=== PATIENT | female | born 1975 | race Caucasian/White ===

== ENCOUNTER 2019-06-05 01:57 | Emergency (ER) | payer OTHER ==
[~2019-06-05] VITALS: Ht 167.6 cm; Wt 145.1 kg
--- OUTSIDE RECORDS SUMMARY | 2019-06-05 02:00 | XMS REPORT ---
Author Author [facility] [place] Address Unknown Phone Unavailable Care Team Providers Care Special Events Manager Name Role Phone Unavailable Unavailable Payers Payer Name Policy Type Policy Number Effective Date Expiration Date Problems This patient has no known problems. Allergies, Adverse Reactions, Alerts Allergy Name Allergy Type Status Severity Reaction(s) Onset Date Inactive Date Treating Clinician Comments methocarbamol DA Active MT 2019-01-25 00:00:00 duloxetine DA Active MT 2019-01-25 00:00:00 No Known Contrast Allergies DA Active U 2001-07-25 00:00:00 No Known Drug Allergies DA Active U 2001-07-25 00:00:00 No Known Food Allergies DA Active U 2001-07-25 00:00:00 TAPE DA Active U 2001-07-25 00:00:00 Medications This patient has no known medications. Results Test Description Test Time Test Comments Text Results Atomic Results Result Comments SURGICAL SPECIMENS 2019-01-31 18:03:00 RUN DATE: 01/31/19 [facility] *LIVE* PAGE 1 RUN TIME: 1805 Specimen Inquiry RUN USER: INTERFACE PATIENT: ROBERTA SILVEIRA LOC: [facility] #: [id number] AGE/SX: 43/F ROOM: RE01/29/19[facility] DR: Mary Zelaya MD : 73 BED: DIS: STATUS: [facility] [place] TLOC: SPEC #: [id number] RECD: 01/30/19 STATUS: NAOMI GLORIA #: [id number] ROMEO: 01/30/19 [facility] DR: Mary Zelaya MD ENTERED: 01/31/19 SP TYPE: SURG SPEC OT DR: ORDERED: LEVEL 4 CODES: [id number] - ENDOCERVIX PROCEDURES: LEVEL 4 (Incomplete) TISSUES: 1. ENDOCERVIX - Endocervix, endometrium, curettings FINAL DIAGNOSIS Endocervix, e ndometrium, curettings: Endometrium showing disordered proliferative endometrium; small fragments of endocervical tissue without evidence of dysplasia or carcinoma. GROSS AND MICROSCOPIC GROSS EXAMINATION: Received in formalin and labeled endocervix/endometrial curettings are segments of pink-zambrano tissue and hemorrhagic coagulum that measure together up to 3.5 cm. Entirely submitted. MICROSCOPIC EXAMINATION: The endocervical and endometrial curettings show mucoid materia l and primarily endometrial glands and stroma. The glands show a disordered offered of endometrium. Small fragments of endocervical tissue are present without evidence of dysplasia or carcinoma. POST-OP DIAGNOSIS Menorrhagia PRE-OP DIAGNOSIS Menorrhagia REVIEWED BY: Signed SIGNATURE ON FILE Kady Spence MD 01/31/19 1803 END OF REPORT BASIC METABOLIC PANEL 2019-01-29 08:45:00 SODIUM (test code=NA) 139 mEq/L 134-147 POTASSIUM (test code=K) 3.0 mEq/L 3.4-5.0 CHLORIDE (test code=CL) 103 mEq/L 100-108 CARBON DIOXIDE (test code=CO2) 31 mEq/L 21-33 ANION GAP (test code=GAP) 8 0-20 GLUCOSE (test code=GLU) 94 mg/dL 70-110 BLOOD UREA NITROGEN (test code=BUN) 16 mg/dL 7-18 GLOMERULAR FILTRATION RATE (test code=GFR) 108.6 95-105 Units of measure=ml/min/1.73 m2 CREATININE (test code=CREAT) 0.6 mg/dL 0.6-1.3 CALCIUM (test code=CA) 8.8 mg/dL 8.0-10.5 BASIC METABOLIC [id number] 08:41:00* Test Item Value Reference Range Comments SODIUM (test code=NA) 138 mEq/L 134-147 POTASSIUM (test code=K) 3.1 mEq/L 3.4-5.0 CHLORIDE (test code=CL) 103 mEq/L 100-108 CARBON DIOXIDE (test code=CO2) 29 mEq/L 21-33 ANION GAP (test code=GAP) 9 0-20 GLUCOSE (test code=GLU) 100 mg/dL 70-110 BLOOD UREA NITROGEN (test code=BUN) 16 mg/dL 7-18 GLOMERULAR FILTRATION RATE (test code=GFR) 90.9 95-105 Units of measure=ml/min/1.73 m2 CREATININE (test code=CREAT) 0.7 mg/dL 0.6-1.3 CALCIUM (test code=CA) 9.2 mg/dL 8.0-10.5 PROTHROMBIN [id number] 08:38:00* Test Item Value Reference Range Comments PROTHROMBIN TIME PATIENT (test code=PTP) 12.0 SECONDS 9.3-12.9 INTERNATIONAL NORMAL RATIO (test code=INR) 1.1 0.8-1.2 TARGET INR BY INDICATION Indication INR1. Prophylaxis of venous thrombosis 2.0 - 3.0 (orthopedic surgery), Prophylaxis of venous thrombosis (other than high-risk surgery), Treatment of Deep Vein Thrombosis/Pulmonary Embolism, Prevention of systemic embolism - Tissue heart valves, Acute Myocardial Infarction (to prevent systemic embolism), Valvular heart disease, Atrial Fibrillation, Bileaflet mechanical valve in aortic position.2. Mechanical prosthetic valves (high risk), 2.5 - 3.5 Presence of Lupus Anticoagulant or Antiphospholipid Antibodies, Prevention of systemic embolism - Acute Myocardial Infarction (to prevent recurrent infarct). THROMBOPLASTIN TIME [id number] 08:38:00* Test Item Value Reference Range Comments THROMBOPLASTIN TIME PARTIAL (test code=PTT) 38.6 Seconds 25.0-39.5 Therapeutic Range: 50.4 - 88.3 Seconds Effective 07/24/2018 HCG SERUM [id number] 08:22:00* Test Item Value Reference Range Comments HCG SERUM QUAL (test code=HCGQL) SERUM NEGATIVE NEGATIVE CBC W/AUTO [id number] 08:17:00* Test Item Value Reference Range Comments WHITE BLOOD CELL (test code=WBC) 8.53 x10 3/uL 4.5-11.0 RED BLOOD CELL (test code=RBC) 4.95 x10 6/uL 3.54-5.02 HEMOGLOBIN (test code=HGB) 14.7 g/dL 11.0-15.0 HEMATOCRIT (test code=HCT) 44.9 % 33.0-45.0 MEAN CELL VOLUME (test code=MCV) 90.7 fL 81.0-99.0 MEAN CELL HGB (test code=MCH) 29.7 pg 27.0-33.0 MEAN CELL HGB CONCETRATION (test code=MCHC) 32.7 g/dL 33.0-37.0 RED CELL DISTRIBUTION WIDTH CV (test code=RDW) 13.0 % 11.5-14.5 RED CELL DISTRIBUTION WIDTH SD (test code=RDW-SD) 42.9 fL 37.0-54.0 PLATELET COUNT (test code=PLT) 367 x10 3/uL 150-400 MEAN PLATELET VOLUME (test code=MPV) 9.2 fL 7.0-9.0 NEUTROPHIL % (test code=NT%) 64.6 % 56.0-77.0 IMMATURE GRANULOCYTE % (test code=IG%) 0.4 % 0.0-2.0 LYMPHOCYTE % (test code=LY%) 25.2 % 14.0-32.0 MONOCYTE % (test code=MO%) 7.3 % 4.8-9.0 EOSINOPHIL % (test code=EO%) 2.0 % 0.3-3.7 BASOPHIL % (test code=BA%) 0.5 % 0.0-2.0 NUCLEATED RBC % (test code=NRBC%) 0.0 % 0-0 NEUTROPHIL # (test code=NT#) 5.52 x10 3/uL 2.0-7.6 IMMATURE GRANULOCYTE # (test code=IG#) 0.03 x10 3/uL 0.00-0.03 LYMPHOCYTE # (test code=LY#) 2.15 x10 3/uL 1.0-3.8 MONOCYTE # (test code=MO#) 0.62 x10 3/uL 0.1-0.8 EOSINOPHIL # (test code=EO#) 0.17 x10 3/uL 0.0-0.2 BASOPHIL # (test code=BA#) 0.04 x10 3/uL 0.0-0.2 NUCLEATED RBC # (test code=NRBC#) 0.00 x10 3/uL 0.0-0.1 MANUAL DIFF REQUIRED (test code=MDIFF) NO
[2019-06-05] MEDS ORDERED: MORPHINE SULFATE INJ 4 MG/ML INJ 1ML IM STA ×2 (02:09→03:23)
[2019-06-05] MEDS ORDERED: CLONIDINE HCL 0.1 MG TAB PO STA (03:30)
[2019-06-05] MEDS ORDERED: KETOROLAC TROMETHAMINE 60 MG/2 ML VIAL IM ONE (03:30)
[2019-06-05 04:20] VITALS: BP 164/105
== END 2019-06-05 04:35 | disposition home or self-care (01) ==
LOC: ER 01:57
DX: M54.16 Radiculopathy, lumbar region (principal); G89.29 Other chronic pain; I10 Essential (primary) hypertension
CPT/HCPCS: 99282; J1885; J2270